=== PATIENT | female | born 1945 | race Caucasian/White ===

== ENCOUNTER → 2017-06-03 | Outpatient (CLI) | payer OTHER ==
[~2017-06-03] MED LIST: ESTRACE0.5 MG PO; ESTRADIOL 1 MG T1 M1 PO; FLOMAX0.4 MG PO; GLUCOSAMINE HC500 MG PO; HYDROCODONE-AP1 EAC6 PO; LEXAPRO 10 MG T10 M1 PO; LOPERAMIDE 2 MG2 M1 PO; PEPTO-BISM262 MG/15 PO; PROBIOTIC1 EAC1 PO; WELLBUTRIN 100100 MG PO
== END ==
LOC: RAD 14:03
DX: R05 Cough (principal); R50.9 Fever, unspecified

== ENCOUNTER → 2017-06-05 | Outpatient (CLI) | payer OTHER | LOC: RAD 13:58 | DX: J18.1 Lobar pneumonia, unspecified organism (principal); J98.4 Other disorders of lung; M25.78 Osteophyte, vertebrae ==

== ENCOUNTER → 2018-09-06 | Outpatient (CLI) | payer OTHER | LOC: MRI 09:51 | DX: M47.812 Spondylosis without myelopathy or radiculopathy, cervical region (principal); M48.02 Spinal stenosis, cervical region; M50.221 Other cervical disc displacement at C4-C5 level; M12.88 Other specific arthropathies, not elsewhere classified, other specified site; M25.78 Osteophyte, vertebrae ==

== ENCOUNTER → 2018-09-16 | Outpatient (CLI) | payer OTHER | LOC: RAD 14:14 | DX: M19.041 Primary osteoarthritis, right hand (principal); M19.042 Primary osteoarthritis, left hand ==